=== PATIENT | female | born 1955 | race Caucasian/White ===

== ENCOUNTER 2019-04-26 19:50 | Inpatient (IN) | payer MEDICARE, MEDICAID ==
[~2019-04-26] VITALS: Ht 152.4 cm; Wt 74.8 kg
[2019-04-26 19:52] VITALS: BP 186/85
[2019-04-26] MEDS ORDERED: COREG (19:54)
[2019-04-26] MEDS ORDERED: VYTORIN (19:54)
[2019-04-26] MEDS ORDERED: FLEXERIL (19:55)
[2019-04-26] MEDS ORDERED: TESSALON PERLE (19:55)
[2019-04-26] MEDS ORDERED: VOLTAREN (19:55)
[2019-04-26] MEDS ORDERED: BREO ELLIPTA (19:56)
[2019-04-26] MEDS ORDERED: SINGULAIR (19:56)
[2019-04-26] MEDS ORDERED: PROAIR HFA8.5 GM (19:56)
[2019-04-26] MEDS ORDERED: FOLITAB (19:57)
[2019-04-26 20:24] LABS: ABSOLUTE BASOPHILS 0.1 thou/uL (0.0-0.2); ABSOLUTE EOSINOPHILS 0.3 thou/uL (0.0-0.7); ABSOLUTE LYMPHOCYTES 1.8 thou/uL (0.8-5.3); ABSOLUTE MONOCYTES 0.7 thou/uL (0.0-1.2); ABSOLUTE NEUTROPHILS 7.3 thou/uL (1.6-8.1); BASOPHILS 0.7 %; EOSINOPHILS 2.8 %; HEMATOCRIT 44.5 % (37.0-47.0); HEMOGLOBIN 14.9 gm/dL (12.0-15.0); MCH 30.2 pg (26.0-34.0); MCHC 33.5 g/dL (28.0-37.0); MCV 90.3 fL (80.0-100.0); MONOCYTES 7.2 %; MPV 8.5 fl. (7.2-11.1); NUCLEATED RBCS 0 /100WBC; PLATELET COUNT* 308 thou/uL (150-400); POLYS 71.3 %; RBC 4.93 mil/uL (4.20-5.00); RDW-CV 13.4 % (10.5-14.5); WBC 10.2 thou/uL (4.0-11.0)
[2019-04-26 20:44] LABS: CALCIUM 9.4 mg/dL (8.5-10.1); CREATININE 0.9 mg/dL (0.6-1.3); POTASSIUM 4.1 mmol/L (3.5-5.1)
--- NOTE | 2019-04-26 20:50 | NUR ---
2013 pt c/o chest pressure 7, tng 0.4mg sl given as ordered 2018 pt states pressure was relieved
[2019-04-26 20:58] LABS: ALBUMIN 3.5 g/dL (3.4-5.0); TOTAL BILIRUBIN 0.2 mg/dL (<0.1-1.0); TOTAL PROTEIN 7.1 g/dL (6.4-8.2)
[2019-04-26 21:04] LABS: BE 4.3 mmol/L (-2 to +3)
[2019-04-26 21:06] LABS: pH 7.269 (7.340-7.450)
[2019-04-26 21:07] LABS: PCO2 76.2 mmHg (35.0-45.0); PO2 178.4 mmHg (75.0-100.0)
[2019-04-26 22:05] VITALS: BP 146/69
[2019-04-26 22:15] VITALS: BP 170/64
[2019-04-26] MEDS ORDERED: CARVEDILOL12.5 MG PO (23:21)
[2019-04-26] MEDS ORDERED: CATAPRES0.1 MG PO (23:23)
[2019-04-26] MEDS ORDERED: SIMVASTATIN80 MG PO (23:24)
[2019-04-26] MEDS ORDERED: DICLOFENAC SODI75 MG PO (23:25)
[2019-04-26] MEDS ORDERED: FLEXERIL PO (23:26)
[2019-04-26] MEDS ORDERED: SINGULAIR 10 MG10 MG PO (23:28)
[2019-04-26] MEDS ORDERED: CLARITIN-D 121 EAC1 PO (23:28)
[2019-04-26] MEDS ORDERED: PROAIR HFA8.5 GM INH (23:29)
[2019-04-26] MEDS ORDERED: FLONASE 0.05%50 MCG NASAL (23:30)
[2019-04-26] MEDS ORDERED: ANORO ELLIPTA1 EACH (23:31)
[2019-04-26] MEDS ORDERED: SENNA PLUS TAB1 EACH PO (23:33)
[2019-04-26] MEDS ORDERED: IRON325 M1 PO (23:33)
[2019-04-26] MEDS ORDERED: COLACE 100 MG100 MG PO (23:34)
[2019-04-26] MEDS ORDERED: DULCOLAX STOOL100 M1 PO (23:35)
[2019-04-26] MEDS ORDERED: BENADRYL25 MG PO (23:38)
[2019-04-26] MEDS ORDERED: TESSALON PERLE100 M1 PO (23:40)
[2019-04-27] VITALS: BP 136/53
[2019-04-27 04:22] VITALS: BP 164/57
--- NOTE | 2019-04-27 04:53 | NUR ---
RECEIVED PT FROM ER PER CART AT APPROX 2215 ACCOMPANIED BY MACIE QUINONEZ. PT IS AWAKE AND ORIENTED X4. VSS ON THE BIPAP. PT DENIES PAIN/DISCOMFORT. ADMISSION ASSESSMENT DONE AND CHARTED. PT IS ADVISED ON THE USE OF CALL LIGHT AND ON ROOM SET UP. PT IS UP STANDBY TO THE BSC, WITH STABLE GAIT. PT REMAINED STABLE THROUGH OUT THE SHIFT. CALL LIGHT WITHIN REACH. HOURLY ROUNDING DONE FOR PT SAFETY.
[2019-04-27 08:00] VITALS: BP 189/85
[2019-04-27 10:36] LABS: BE 0 mmol/L (-2 to +3); pH 7.313 (7.340-7.450)
[2019-04-27 10:45] LABS: PCO2 55.1 mmHg (35.0-45.0); PO2 126.1 mmHg (75.0-100.0)
[2019-04-27 11:24] LABS: MAGNESIUM 1.9 mg/dL (1.8-2.4)
[2019-04-27 11:25] LABS: CALCIUM 8.9 mg/dL (8.5-10.1); CREATININE 0.9 mg/dL (0.6-1.3)
[2019-04-27 11:45] VITALS: BP 125/55
--- NOTE | 2019-04-27 12:47 | CON ---
[address] [address] CONSULTATION Name: CLARISA MAO Room: [address] IN ..#: [id number] Admission: 04/26/19 Attend Phys: [place] Leonard Discharge: Date of : 53 Report #: [id number] THIS REPORT FOR: //name// CC: FAM unknown Yuriy Hernandez DO DATE OF SERVICE: 04/27/2019 PULMONARY CONSULTATION REASON FOR CONSULTATION: Acute on chronic hypoxic hypercapnic respiratory failure. PHYSICIAN REQUESTING CONSULTATION: Yuriy Hernandez DO HISTORY OF PRESENT ILLNESS: The patient is a 63-year-old female with past medical history that is significant for COPD, chronic hypoxic respiratory failure on 3 liters of oxygen with CPAP at nighttime only. Obesity and history of anemia and hypertension. The patient presented to the Emergency Department with a history of progressive shortness of breath and chest tightness that has been going on for the last 1 week. This became worse over the last one day. The patient was seen in the Emergency Department where she was found to have acute on chronic hypoxic hypercapnic respiratory failure for which she was started on BiPAP. She also reported history of cough that is mostly dry. She has a history of chest tightness and wheezing. The patient is maintained on Anoro at home along with the DuoNeb as needed and Singulair. She is also maintained on antihistamine for what appears to be allergic rhinitis. Unfortunately, the patient has a history of smoking 1 pack for 40 years. She quit smoking in 2012 and she started smoking approximately 2 weeks ago due to the recent stress. She reports that her dyspnea became better after restarting on BiPAP. REVIEW OF SYSTEMS: Positive as described above for dyspnea, wheezing, chest tightness and overall malaise. Remaining 10-point review of systems was otherwise unremarkable. PAST MEDICAL HISTORY: 1. Positive for COPD, chronic hypoxic respiratory failure on 3 liters of oxygen at nighttime. 2. [place] [address] CONSULTATION Name: CLARISA MAO Room: [address] IN [facility]#: [id number] Admission: 04/26/19 Attend Phys: Florida Leonard Discharge: Date of : 53 Report #: [id number] 3. Obesity. 4. Hyperlipidemia. 5. Anemia. PAST SURGICAL HISTORY: History of hysterectomy. FAMILY HISTORY: Positive for COPD in both her mother and father. SOCIAL HISTORY: The patient has a history of smoking as mentioned above. She denies alcohol or illicit drug use, otherwise. PHYSICAL EXAMINATION: VITAL SIGNS: Temperature 36.4, heart rate of 66, respiratory rate of 20, blood pressure of 125/55, saturation is 100% on BiPAP at 16/6 with 35% FiO2. GENERAL: Showed an obese lady, who is in mild distress who is conscious, oriented x 3. HEENT: Showed atraumatic head. Pupils are round, reactive to light and accommodation. NECK: Supple. No JVD, thyromegaly or cervical lymphadenopathy. No carotid bruit. CARDIOVASCULAR: Regular rate and rhythm. Normal S1, S2, no murmur. LUNGS: Chest examination showed decreased air entry with prolonged expiratory phase and end expiratory rhonchi. ABDOMEN: Obese, soft, lax, nontender. Normal bowel sounds. EXTREMITIES: Lower limb examination showed no significant edema, clubbing or cyanosis. CENTRAL NERVOUS SYSTEM: Patient is conscious, oriented x 3, with no focal neurological deficit. LABORATORY DATA: Her labs and investigations were as follows: CBC showed WBC count of 10.2, hemoglobin of 14.9 and platelets of 308. Her admission ABG showed pH of 7.269 with pCO2 of 76.2 and pO2 of 148.4. Repeat ABG this morning that I ordered showed pH 7.31 and pCO2 of 55 and pO2 of 126 on BiPAP at 35% and pressure of 16/6 cm H2O. Her chest x-ray showed no evidence of acute infiltrate, effusion or pneumothorax. ASSESSMENT AND PLAN: 1. Acute on chronic hypoxic hypercapnic respiratory failure. 2. Acute exacerbation of chronic obstructive pulmonary disease. 3. Tobacco dependence. 4. Obstructive sleep apnea. 5. Nocturnal hypoxemia. 6. Obesity. PLAN: 1. Her acute hypoxic hypercapnic respiratory failure [place] [address] CONSULTATION Name: CLARISA MAO Room: [address] IN [facility]#: [id number] Admission: 04/26/19 Attend Phys: [place] Leonard Discharge: Date of : 53 Report #: [id number] 2. I will keep her on BiPAP most of the day today and during the nighttime continuously. Titrate oxygen to keep saturation between 88-92%. 3. Follow up ABG at 8:00 a.m. along with chest x-ray. 4. Scheduled bronchodilators. 5. Empiric antibiotic coverage with azithromycin. 6. IV Solu-Medrol 62.5 every 8 hours. 7. I will check influenza A and B screening and adjust antibiotic after getting blood cultures and sputum culture results. 8. I counseled the patient on smoking cessation. 9. She has obstructive sleep apnea and she has been maintained on CPAP machine at home with 3 liters of oxygen. Thank you for giving us the opportunity to participate in the management of this patient. <ELECTRONICALLY SIGNED> By: Espinoza Bowie MD 04/27/19 1247 [id number] Bowie MD /nt
[2019-04-27 13:11] LABS: INFLUENZA A ANTIGEN Negative (Negative); INFLUENZA B ANTIGEN Negative (Negative)
--- NOTE | 2019-04-27 15:03 | NUR ---
Pt sound asleep on bipap, CM to attempt to see Pt tomorrow. Consult recieved to arrange a trilogy. Faxed referral to [facility], Pt qualifies, CM to obtain order signature tomorrow. Following.
--- NOTE | 2019-04-27 15:03 | EKG ---
[place] [address] ELECTROCARDIOGRAM REPORT Name: CLARISA MAO Room: [address] ADM IN [facility]#: [id number] Admission: 04/26/19 Attend Phys: [place] Leonard Discharge: Date of : 53 Report #: [id number] THIS REPORT FOR: //name// [facility] ED Test Date: 2019-04-26 Test Time: 19:58:58 Pat Name: CLARISA MAO Department: Room: [facility] Gender: F Supervisor Dried Yeast: [place] : 1955 Requested By: Jess Liu Order Number: [id number] MD: Go Pelaez Measurements Intervals [place] Rate: 75 P: 83 GA: 184 QRS: -41 QRSD: 92 T: 67 QT: 391 QTc: 437 Interpretive Statements Sinus rhythm PAC is noted Biatrial enlargement Left axis deviation Anteroseptal infarct, age indeterminate possible Artifact in lead(s) V5,V6 No previous ECG available for comparison Electronically Signed On 04-27-2019 15:03:37 CDT by Go Pelaez [email or web address] <ELECTRONICALLY SIGNED> By: Go Pelaez MD, FACC 04/27/19 1503 57 57 Go Pelaez MD, FAC /EPI
[2019-04-27 15:47] VITALS: BP 190/66
--- NOTE | 2019-04-27 17:00 | NUR ---
ASSUMED CARE OF PT AT 0730. PT ON BIPAP THIS AM. REPEAT ABG'S COMPLETED-IMPROVING, ORDERS RECEIVED FOR BIPAP ON 2 HOURS AND OFF 2 HOURS, CONTINUOUS AT [facility]. PT ON 3L NC WHEN OFF BIPAP, TOLERATING WELL. PT DENIES ANY SHORTNESS OF BREATH OR PAIN THROUGHOUT SHIFT. TRACING SR ON THE CHILD SUPPORT SPECIALIST. UP WITH SBA TO BSC. INFLUENZA SWAB OBTAINED-NEGATIVE. URINALYSIS AND SPUTUM OBTAINED AND SENT TO LAB. AWAITING RESULTS AT THIS TIME. PT TO HAVE REPEAT CXR TOMORROW AM 04/28. IVF. PULMONARY CONSULT IN PLACE. PT DIET ADVANCED TO REGULAR. TOLERATING WELL. AM ASSESSMENT CHARTED. MEDICATIONS PER SEP. PT REPOSITIONS SELF. HOURLY ROUNDING OBSERVED. BED IN LOW POSITION. CALL LIGHT WITHIN REACH. WILL CONTINUE PLAN OF CARE.
[2019-04-27 17:07] LABS: URINE BILIRUBIN NEGATIVE (Negative); URINE BLOOD TRACE (Negative); URINE CLARITY CLEAR; URINE GLUCOSE-RANDOM NEGATIVE (Negative); URINE KETONES NEGATIVE (Negative); URINE LEUKOCYTES-REFLEX NEGATIVE (Negative); URINE NITRITE-REFLEX NEGATIVE (Negative); URINE PROTEIN NEGATIVE (Negative); URINE SPECIFIC GRAVITY <= 1.005 (1.005-1.030); URINE UROBILINOGEN 0.2 E.U./dl (0.2-1.0)
[2019-04-27 17:09] LABS: URINE COLOR PALE YELLOW
[2019-04-27 20:00] VITALS: BP 177/71
[2019-04-28] VITALS: BP 119/40
[2019-04-28 02:31] LABS: HEMATOCRIT 39.5 % (37.0-47.0); MCH 29.1 pg (26.0-34.0); MCHC 32.4 g/dL (28.0-37.0); MCV 89.9 fL (80.0-100.0); MPV 8.6 fl. (7.2-11.1); RBC 4.4 mil/uL (4.20-5.00); RDW-CV 13.6 % (10.5-14.5); WBC 18.2 thou/uL (4.0-11.0)
[2019-04-28 02:34] LABS: CALCIUM 9.3 mg/dL (8.5-10.1); CREATININE 0.8 mg/dL (0.6-1.3); MAGNESIUM 1.9 mg/dL (1.8-2.4); POTASSIUM 4.6 mmol/L (3.5-5.1)
[2019-04-28 02:39] LABS: HEMOGLOBIN 12.8 gm/dL (12.0-15.0)
[2019-04-28 04:28] VITALS: BP 126/57
--- NOTE | 2019-04-28 04:52 | NUR ---
PT ALERT ORIENTED. UP TO BSC WITH STAND BYE ASSIST. BIPAP ON CONTINUOUS HS. TELEMETRY SHOWS SB/SR. PT HAD EPISOID THAT INITALLY WAS THOUGHT TO BE ARTIFACT. PT SITTING ON EDGE OF BED WITH BIPAP NO PALPATATIONS FELT. ALL LAB WORK BACK WNL. DR TESFAYE NOTIFIED THAT PT HAD EPISOID OF ARTIFACT VS TORSADES. 2 GRAM OF MAG ORDERED AND TO KEEP MAG LEVEL ABOVE 2.0.
[2019-04-28 06:16] LABS: BE 1.3 mmol/L (-2 to +3); PCO2 43.9 mmHg (35.0-45.0); pH 7.398 (7.340-7.450)
[2019-04-28 06:19] LABS: PO2 127.6 mmHg (75.0-100.0)
--- NOTE | 2019-04-28 06:40 | NUR ---
ABG RESULTS BACK CRITICAL PO2 127.6. DR TESFAYE NOTIFIED. RT NOTIFIED.
[2019-04-28 08:00] VITALS: BP 149/68
[2019-04-28 11:46] VITALS: BP 127/63
--- NOTE | 2019-04-28 14:52 | NUR ---
Pt is A&O on bipap. Resides at home. Normally independent. Has home cpap and o2. Consult for [facility] to deliver trilogy to Pt's room tomorrow. No other DME. Following
[2019-04-28 16:06] VITALS: BP 143/61
--- NOTE | 2019-04-28 19:06 | NUR ---
ASSUMED CARE OF PT AT 0730. PT A&0X4, DENIES ANY PAIN OR SHORTNESS OF BREATH. PT TRACING SR ON THE SALES AND MARKETING EXECUTIVE. ON 3L NC SAT UPPER 90'S. PT UP SBA TO BSC. PT UP TO CHAIR FOR MEALS TODAY-TOLERATED WELL. SHOWERED INDEPENDENTLY THIS AM-TOLERATED WELL. PT PROGRESSSING TOWARDS GOALS- POSSIBLE DISCHARGE HOME TOMORROW 04/29. AM ASSESSMENT CHARTED. MEDICATIONS PER SEP. PT REPOSITIONS SELF. HOURLY ROUNDING OBSERVED. BED IN LOW POSITION. CALL LIGHT WITHIN REACH. WILL CONTINUE PLAN OF CARE.
[2019-04-28 20:00] VITALS: BP 162/65
[2019-04-29] VITALS: BP 147/49
[2019-04-29 04:00] VITALS: BP 149/74
--- NOTE | 2019-04-29 05:11 | NUR ---
ASSUMED PT CARE AT APPROX 1930. PT IS AWAKE AND ORIENTED X4. VSS ON 3L OF O2/NC, NO DESATURATIONS NOTED. PT IS ON BIPAP AT HS. CLOTH DYER IN PLACE, TRACING SR. PT IS ABLE TO SLEEP MOST OF THE NIGHT. CALL LIGHT WITHIN REACH. FALL PRECAUTIONS IN PLACE. HOURLY ROUNDING DONE FOR PT SAFETY.
[2019-04-29 05:13] LABS: CALCIUM 9.1 mg/dL (8.5-10.1); CREATININE 0.9 mg/dL (0.6-1.3); MAGNESIUM 2.2 mg/dL (1.8-2.4); POTASSIUM 4.8 mmol/L (3.5-5.1)
--- NOTE | 2019-04-29 07:20 | NUR ---
CHANGE OF SHIFT, BEDSIDE REPORT GIVEN PATIENT SEEN AT BEDSIDE, IN BED ASLEEP ASSUMED PATIENT CARE
[2019-04-29 08:00] VITALS: BP 148/61
--- NOTE | 2019-04-29 10:46 | NUR ---
Spoke with Valentine from [facility], trilogy should be delivered today between 4-6pm.
[2019-04-29 11:45] VITALS: BP 153/60
[2019-04-29 16:16] VITALS: BP 148/68
[2019-04-29 20:00] VITALS: BP 175/71
[2019-04-30] VITALS: BP 143/67
--- NOTE | 2019-04-30 03:51 | NUR ---
ASSUMED PT CARE AT APPROX 1930. PT IS AWAKE AND ORIENTED X4. VSS ON 1.5L OF O2/NC. PT IS ON TRILOGY w/3L OF O2 AT HS, NO DESATURATIONS NOTED. PT DENIES PAIN. PT IS ABLE TO SLEEP MOST OF THE NIGHT. CALL LIGHT WITHIN REACH. HOURLY ROUNDING DONE FOR PT SAFETY.
[2019-04-30 04:00] VITALS: BP 153/70
[2019-04-30 07:40] VITALS: BP 184/81
[2019-04-30] MEDS ORDERED: PREDNISONE 10 M10 M1 PO (10:24)
[2019-04-30] MEDS ORDERED: AZITHROMYCIN 2250 MG PO (10:24)
[2019-04-30 11:25] VITALS: BP 184/81
--- NOTE | 2019-04-30 12:27 | NUR ---
PT TO DC THIS AFTERNOON ONCE HER RIDE ARRIVES. RX CANCELLED AT [facility] AND CALLED IN TO [facility] [place] THIS MORNING BY THIS RN PER PT REQUEST AND DR VAZQUEZ AUTHORIZATION. NO PAIN NOTED AT THIS TIME. PT STATES SHE IS FEELING MUCH BETTER. WILL REMOVE IV AND CONTINUE TO MONITOR UNTIL PT GOES HOME.
== END 2019-04-30 13:16 | disposition home or self-care (01) | DRG 193 ==
LOC: M.ERS 19:50 → M.TBA-ER 21:25 → M.2W 21:25
PROVIDERS: Emergency Medicine; Internal Medicine; Internal Medicine Critical Care Medicine; ADMIT Internal Medicine
PROC: 5A09357 Assistance with Respiratory Ventilation, Less than 24 Consecutive Hours, Continuous Positive Airway Pressure (ICD-10-PCS; principal; 2019-04-26)
PROC: 5A09357 Assistance with Respiratory Ventilation, Less than 24 Consecutive Hours, Continuous Positive Airway Pressure (ICD-10-PCS; 2019-04-27)
PROC: 5A09357 Assistance with Respiratory Ventilation, Less than 24 Consecutive Hours, Continuous Positive Airway Pressure (ICD-10-PCS; 2019-04-28)
PROC: 5A09357 Assistance with Respiratory Ventilation, Less than 24 Consecutive Hours, Continuous Positive Airway Pressure (ICD-10-PCS; 2019-04-29)
PROC: 5A09357 Assistance with Respiratory Ventilation, Less than 24 Consecutive Hours, Continuous Positive Airway Pressure (ICD-10-PCS; 2019-04-30)
DX: J18.9 Pneumonia, unspecified organism (principal); J96.21 Acute and chronic respiratory failure with hypoxia; J96.22 Acute and chronic respiratory failure with hypercapnia; J44.1 Chronic obstructive pulmonary disease with (acute) exacerbation; J44.0 Chronic obstructive pulmonary disease with (acute) lower respiratory infection; E66.2 Morbid (severe) obesity with alveolar hypoventilation; I10 Essential (primary) hypertension; E78.5 Hyperlipidemia, unspecified; E78.00 Pure hypercholesterolemia, unspecified; K59.00 Constipation, unspecified; E61.1 Iron deficiency; J20.9 Acute bronchitis, unspecified; F17.210 Nicotine dependence, cigarettes, uncomplicated; Z79.899 Other long term (current) drug therapy; Z88.6 Allergy status to analgesic agent; Z88.0 Allergy status to penicillin; Z99.81 Dependence on supplemental oxygen; Z90.710 Acquired absence of both cervix and uterus; Z83.6 Family history of other diseases of the respiratory system; Z71.6 Tobacco abuse counseling